=== PATIENT | male | born 1965 | race Caucasian/White ===

== ENCOUNTER 2017-01-08 13:52 | Emergency (ER) | payer MEDICARE, MEDICAID ==
[2017-01-08 14:29] LABS: APPEARANCE HAZY (CLEAR); BILIRUBIN NEGATIVE (NEGATIVE); COLOR YELLOW (YELLOW); GLUCOSE NEGATIVE (NEGATIVE); KETONE NEGATIVE (NEGATIVE); LEUKOCYTE ESTERASE NEGATIVE (NEGATIVE); NITRITE NEGATIVE (NEGATIVE); PROTEIN NEGATIVE (NEGATIVE); SPECIFIC GRAVITY 1.015 (1.005-1.020); UROBILINOGEN NORMAL (NORMAL)
[2017-01-08 14:33] LABS: UDS - AMPHET NEGATIVE QUAL (NEGATIVE); UDS - BARB NEGATIVE QUAL (NEGATIVE); UDS - BENZO POSITIVE QUAL (NEGATIVE); UDS - COCAINE NEGATIVE QUAL (NEGATIVE); UDS - METH NEGATIVE QUAL (NEGATIVE); UDS - OPIATE POSITIVE QUAL (NEGATIVE); UDS - PCP NEGATIVE QUAL (NEGATIVE); UDS - THC NEGATIVE QUAL (NEGATIVE)
[2017-01-08 14:34] LABS: BASOPHILS 0.3 % (0-2); EOSINOPHILS 4.5 % (0-7); HEMATOCRIT 40.4 % (42.0-54.0); HEMOGLOBIN 13.4 g/dL (13.5-17.5); IMMATURE GRANULOCYTES 0.1 % (0-5); LYMPHOCYTES 24.7 % (15-50); MCH 33.6 pg (26.0-34.0); MCHC 33.2 g/dL (31.0-37.0); MCV 101.3 fL (80.0-100.0); MEAN PLATELET VOLUME 10.6 fL (7.4-10.4); NEUTROPHILS 62.4 % (40-80); PLATELET COUNT 169 10x3/uL (130-400); RBC 3.99 10x6/uL (4.20-6.10); RDW 13.7 % (11.5-14.5); WBC 7.7 10x3/uL (4.8-10.8)
[2017-01-08 14:53] LABS: ALBUMIN 3.2 g/dL (3.4-5.0); ALKALINE PHOSPHATASE 57 U/L (46-116); ALT (SGPT) 37 U/L (10-68); BILIRUBIN - TOTAL 0.39 mg/dL (0.2-1.3); CALC OSMOLALITY 283 mosm/kg (275-300); CALCIUM 7.9 mg/dL (8.5-10.1); CARBON DIOXIDE 25.5 mmol/L (21.0-32.0); CHLORIDE - SERUM 110 mmol/L (98-107); CREATININE - SERUM 0.8 mg/dL (0.6-1.3); GLUCOSE 78 mg/dL (74-106); POTASSIUM - SERUM 3.8 mmol/L (3.5-5.1); PROTEIN - SERUM 6.1 g/dL (6.4-8.2); SODIUM 144 mmol/L (136-145); UREA NITROGEN 7 mg/dL (7-18); eGFR NON AFRICAN AMERICAN > 90 mL/min (90-120)
== END 2017-01-08 19:15 | disposition home or self-care (01) ==
LOC: D.ER 13:52
PROVIDERS: Emergency Medicine
DX: R41.82 Altered mental status, unspecified (principal); F13.90 Sedative, hypnotic, or anxiolytic use, unspecified, uncomplicated; Z72.820 Sleep deprivation; F17.200 Nicotine dependence, unspecified, uncomplicated

== ENCOUNTER 2018-05-06 15:25 | Emergency (ER) | payer MEDICARE, MEDICAID ==
[~2018-05-06] VITALS: Ht 172.7 cm; Wt 63.5 kg
[2018-05-06 15:50] VITALS: Ht 172.7 cm; Wt 63.5 kg
[2018-05-06 17:00] LABS: HEMATOCRIT 37.8 % (42.0-54.0); HEMOGLOBIN 13.9 g/dL (13.5-17.5); MCH 34.2 pg (26.0-34.0); MCHC 36.8 g/dL (31.0-37.0); MCV 92.9 fL (80.0-100.0); MEAN PLATELET VOLUME 9.2 fL (7.4-10.4); PLATELET COUNT 193 10x3/uL (130-400); RBC 4.07 10x6/uL (4.20-6.10); RDW 12.9 % (11.5-14.5); WBC 4.7 10x3/uL (4.8-10.8)
[2018-05-06 17:30] LABS: ALBUMIN 3.8 g/dL (3.4-5.0); ALKALINE PHOSPHATASE 128 U/L (46-116); ALT (SGPT) 259 U/L (10-68); CALC OSMOLALITY 269 mosm/kg (275-300); CALCIUM 9.3 mg/dL (8.5-10.1); CARBON DIOXIDE 30.5 mmol/L (21.0-32.0); CHLORIDE - SERUM 96 mmol/L (98-107); GLUCOSE 110 mg/dL (74-106); PROTEIN - SERUM 7.9 g/dL (6.4-8.2); SODIUM 136 mmol/L (136-145); UREA NITROGEN 4 mg/dL (7-18); eGFR NON AFRICAN AMERICAN 84 mL/min (90-120)
[2018-05-06 17:41] LABS: POTASSIUM - SERUM 2.9 mmol/L (3.5-5.1)
[2018-05-06] MEDS ORDERED: POTASSIUM40 MEQ/15 PO (18:28)
[2018-05-06 18:32] VITALS: BP 109/73
[2018-05-06 18:37] LABS: EOSINOPHILS 1 % (0-7); LYMPHOCYTES 51 % (15-50); MONOCYTES 8 % (2-11); NEUTROPHILS 40 % (40-80); PLATELET ESTIMATE NORMAL
== END 2018-05-06 18:33 | disposition home or self-care (01) ==
LOC: D.ER 15:25
PROVIDERS: Emergency Medicine
DX: E87.6 Hypokalemia (principal); K13.79 Other lesions of oral mucosa

== ENCOUNTER 2019-06-08 07:38 | Emergency (ER) | payer OTHER, MEDICAID ==
[~2019-06-08] VITALS: Ht 172.7 cm; Wt 68.2 kg
[~2019-06-08 07:38] MED LIST: POTASSIUM40 MEQ/15 PO
[2019-06-08 07:42] VITALS: Ht 172.7 cm; Wt 68.2 kg
[2019-06-08 08:03] LABS: BASOPHILS 0.1 % (0-2); EOSINOPHILS 1.5 % (0-7); HEMATOCRIT 47.4 % (42.0-54.0); HEMOGLOBIN 16.5 g/dL (13.5-17.5); IMMATURE GRANULOCYTES 0.1 % (0-5); LYMPHOCYTES 20.1 % (15-50); MCH 31.8 pg (26.0-34.0); MCHC 34.8 g/dL (31.0-37.0); MCV 91.3 fL (80.0-100.0); MONOCYTES 7.4 % (2-11); NEUTROPHILS 70.8 % (40-80); PLATELET COUNT 193 10x3/uL (130-400); RBC 5.19 10x6/uL (4.20-6.10); RDW 14.1 % (11.5-14.5); WBC 9.4 10x3/uL (4.8-10.8)
[2019-06-08 08:11] LABS: CALC OSMOLALITY 284 mosm/kg (275-300); CALCIUM 9.3 mg/dL (8.5-10.1); CARBON DIOXIDE 26.7 mmol/L (21.0-32.0); CHLORIDE - SERUM 108 mmol/L (98-107); CREATININE - SERUM 0.8 mg/dL (0.6-1.3); GLUCOSE 110 mg/dL (74-106); POTASSIUM - SERUM 4.2 mmol/L (3.5-5.1); SODIUM 142 mmol/L (136-145); UREA NITROGEN 16 mg/dL (7-18); eGFR NON AFRICAN AMERICAN > 90 mL/min (90-120)
[2019-06-08 08:14] LABS: APPEARANCE CLEAR (CLEAR); BILIRUBIN NEGATIVE (NEGATIVE); COLOR YELLOW (YELLOW); GLUCOSE NEGATIVE (NEGATIVE); KETONE NEGATIVE (NEGATIVE); NITRITE NEGATIVE (NEGATIVE); PROTEIN NEGATIVE (NEGATIVE); SPECIFIC GRAVITY 1.005 (1.005-1.020); UROBILINOGEN NORMAL (NORMAL)
[2019-06-08 08:20] LABS: ALKALINE PHOSPHATASE 87 U/L (46-116); ALT (SGPT) 33 U/L (10-68); AMYLASE - SERUM 132 U/L (25-115); BILIRUBIN - TOTAL 0.33 mg/dL (0.2-1.3); LIPASE 134 U/L (73-393); PROTEIN - SERUM 7.6 g/dL (6.4-8.2)
[2019-06-08 08:21] LABS: TROPONIN-I < 0.017 ng/mL (0.000-0.060)
[2019-06-08 08:26] LABS: UDS - AMPHET NEGATIVE QUAL (NEGATIVE); UDS - BARB NEGATIVE QUAL (NEGATIVE); UDS - BENZO NEGATIVE QUAL (NEGATIVE); UDS - COCAINE NEGATIVE QUAL (NEGATIVE); UDS - OPIATE NEGATIVE QUAL (NEGATIVE); UDS - PCP NEGATIVE QUAL (NEGATIVE); UDS - THC POSITIVE QUAL (NEGATIVE)
[2019-06-08] MEDS ORDERED: PEPCID40 MG PO (09:52)
[2019-06-08] MEDS ORDERED: LEVSIN/ANASP0.125 MG PO (09:52)
[2019-06-08] MEDS ORDERED: ZOFRAN ODT4 MG/UDTAB PO (09:55)
[2019-06-08 11:00] VITALS: BP 149/86
== END 2019-06-08 11:00 | disposition home or self-care (01) ==
LOC: D.ER 07:38
PROVIDERS: Family Medicine
DX: R10.9 Unspecified abdominal pain (principal); R11.2 Nausea with vomiting, unspecified; F17.200 Nicotine dependence, unspecified, uncomplicated

== ENCOUNTER → 2020-02-16 14:14 | Outpatient (CLI) | payer MEDICARE, MEDICAID ==
[2019-06-08 07:42] VITALS: BMI 22.8
[~2020-02-16 14:14] MED LIST changes: +LEVSIN/ANASP0.125 MG PO; +PEPCID40 MG PO; +ZOFRAN ODT4 MG/UDTAB PO
== END | disposition home or self-care (01) ==
LOC: D.MRI 14:00
PROVIDERS: ATTEND Clinical Nurse Specialist Family Health
DX: M25.521 Pain in right elbow (principal)

== ENCOUNTER 2020-03-03 07:00 | Day surgery (SDC) | payer MEDICARE, MEDICAID ==
--- NOTE | 2020-03-01 11:18 | NUR ---
POX- 98% HR-75 R-16 BP LA-109/69 STATES BP USUALLY RUNS EVEN LOWER
[~2020-03-03] VITALS: Ht 175.3 cm; Wt 63.6 kg
[~2020-03-03 07:00] MED LIST changes: +BUSPAR10 MG PO; +IBUPROFEN800 MG PO; +MOBIC7.5 MG PO; +TRAZODONE HCL150 MG PO; +ZANAFLEX4 MG PO; +ZOLOFT50 MG PO
[2020-03-03 07:21] VITALS: BP 131/101; Ht 175.3 cm; Wt 63.6 kg
[2020-03-03] MEDS ORDERED: HYDROCODON-ACE1 EA10 PO (09:33)
--- NOTE | 2020-03-03 11:09 | NUR ---
1100 PT ATE JELLO AND MEDICATED FOR PAIN 05/21. RIGHT ARM ELEVATED ON 2 PILLOWS WITH ICE BAGS TO ELBOW. WIGGLES ALL FINGERS ON RIGHT HAND. WARM AND BLANCHES WELL
--- NOTE | 2020-03-05 09:12 | OP ---
PATIENT NAME: AURORA SAMUEL MEDICAL RECORD: [id number] :67 LOCATION:D.OPS ADMISSION DATE: SURGEON: TANYA WORTHINGTON MD DATE OF OPERATION: 03/03/2020 PREOPERATIVE DIAGNOSES: 1. Right lateral epicondylitis. 2. Right medial epicondylitis. PROCEDURES: 1. Right lateral epicondylectomy with debridement and repair. 2. Right medial epicondyle injection. SURGEON: Tanya Worthington MD ANESTHESIA: General. INTRAOPERATIVE COMPLICATIONS: None. SUMMARY OF PATHOLOGIC FINDINGS: The patient had significantly torn extensor brevis tendons at the base with obvious signs of necrosis consistent with the long-term diagnosis of the lateral epicondylitis. The medial epicondyle was injected. OPERATIVE SUMMARY IN DETAIL: After obtaining the appropriate preoperative orthopedic surgery consent as well as anesthetic consultation, evaluation and clearance, the patient was brought to the operating room and placed on the operating table and in supine position. After general laryngeal mask airway was administered, tourniquet was placed about the proximal aspect of the right upper extremity. Right upper extremity was then prepped and draped in routine sterile fashion. The arm was elevated and exsanguinated. Tourniquet was inflated to 250 mmHg. At this point, appropriate timeout was taken and agreed upon by all given the patient's unique identifiers. Incision was made of the right lateral epicondyle, taken down to the level lateral epicondyle itself. Splitting the extensor mechanism showed the findings as noted above. Rongeur was utilized to debride all the nonviable appearing necrotic tendon which was rather extensive. The incision was actually taken into the joint itself to debride the extensive tissue necrosis. Having completed this, a sagittal saw was used to excise the tip of the lateral epicondyle and create a bleeding bone surface. The PushLock was then placed into the lateral epicondyle. The two 2.0 FiberWire was then utilized to reapproximate capsule as well as the extensor mechanism back to the lateral epicondyle. This was then oversewn with a 2-0 FiberWire as well. At this point, the wound was closed with 2-0 Vicryl and 4-0 Prolene in running fashion by ESPINOZA Muller. Having completed this, sterile dressings were applied. Tourniquet was deflated. The patient was awakened and taken to recovery room in stable condition. All final needle and sponge counts were correct. TRANSINT:[id number] Voice Confirmation ID: [id number] DOCUMENT ID: [id number] OPERATIVE REPORT [id number] AURORA SAMUEL MD, TANYA ELY at 0912 CC: [id number] DICTATION DATE: 03/04/20 1135 DEHYDROGENATION OPERATOR: 03/04/20 2144 [facility] 03/03/20 [place] [id number] [place] [id number]
== END 2020-03-03 11:50 | disposition home or self-care (01) ==
LOC: D.OPS 07:00 → D.PAN 10:15 → D.OPS 11:50
PROVIDERS: ATTEND Orthopaedic Surgery
DX: M77.11 Lateral epicondylitis, right elbow (principal); M77.01 Medial epicondylitis, right elbow